=== PATIENT | male | born 1945 | race American Indian/Alaskan Native ===

== ENCOUNTER 2016-07-23 07:12 | Outpatient (CLI) | payer MEDICARE ==
[2016-07-23 07:47] LABS: Hematocrit 43.9 % (35.5-45.6); Hemoglobin 14.6 gm/dl (11.8-15.2); Mean Corpuscular HGB Conc 33 % (32-34); Mean Corpuscular Hemoglobin 32 pg (28-32); Mean Corpuscular Volume 97 fl (84-94); Platelet Count 162 K/mm3 (140-440); Red Blood Count 4.54 M/mm3 (3.65-5.03); Red Cell Distribution Width 13.7 % (13.2-15.2); White Blood Count 5.2 K/mm3 (4.5-11.0)
[2016-07-23 08:13] LABS: Alanine Aminotransferase 24 units/L (7-56); Albumin 3.9 g/dL (3.9-5); Albumin/Globulin Ratio 1.4 %; Alkaline Phosphatase 122 units/L (35-129); Anion Gap 15 mmol/L; BUN/Creatinine Ratio 15.55; Bilirubin,Total 0.4 mg/dL (0.1-1.2); Blood Urea Nitrogen 14 mg/dL (9-20); Calcium 8.7 mg/dL (8.4-10.2); Carbon Dioxide 28 mmol/L (22-30); Chloride 104.4 mmol/L (98-107); Glucose 108 mg/dL (75-100); Potassium 4.1 mmol/L (3.6-5.0); Sodium 143 mmol/L (137-145); Total Protein 6.6 g/dL (6.3-8.2)
[2016-07-25 21:54] LABS: Gamma Globulin 0.9 g/dL (0.8-1.7)
== END 2016-07-23 07:13 | disposition home or self-care (01) ==
LOC: LAB 07:12
PROVIDERS: ATTEND Specialist
DX: G60.9 Hereditary and idiopathic neuropathy, unspecified (principal)
CPT/HCPCS: 36415; 80053; 82607; 82747; 82951; 84165; 84166; 84439; 84443; 85027

== ENCOUNTER 2019-12-24 11:04 | Outpatient (CLI) | payer MEDICARE ==
[2019-12-24 12:20] LABS: Blood Urea Nitrogen 13 mg/dL (9-20)
--- NOTE | 2019-12-24 14:31 | Cat Scan Report ---
CT CHEST WITH CONTRAST HISTORY: Cough, wheezing COMPARISON: None TECHNIQUE: Routine chest CT exam performed following intravenous contrast administration. The patien t received 100 mL of IV Omnipaque 300. All CT scans at this location are performed using CT dose redu ction for DONNA by means of automated exposure control. FINDINGS: CT CHEST: Lungs: No significant abnormality. Trachea and Bronchi: No significant abnormality. Heart and Pericardium: Mild coronary atherosclerotic calcifications. Vasculature: No significant abnormality. Lymphatics: No lymphadenopathy. Osseous Structures: No aggressive appearing osseous lesions. Additional Findings: There are multiple simple cysts in the visualized liver. IMPRESSION: 1. No findings to explain cough or wheezing. No acute or concerning abnormality in the chest. Signer Name: Jimmy Kraus MD Signed: 12/24/2019 2:27 PM Workstation Name: [id number]
== END 2019-12-24 11:05 | disposition home or self-care (01) ==
LOC: CT 11:04
PROVIDERS: ATTEND Specialist
DX: I25.10 Atherosclerotic heart disease of native coronary artery without angina pectoris (principal); R05 Cough; R06.2 Wheezing
CPT/HCPCS: 36415; 71260; 82565; 84520; Q9967